=== PATIENT | female | born 1995 | race Caucasian/White ===

== ENCOUNTER 2016-12-03 16:36 | Outpatient (CLI) | payer SELFPAY | END 2016-12-03 16:38 | LOC: LABRHC 16:36 | PROVIDERS: ATTEND Physician Assistant | DX: Z01.419 Encounter for gynecological examination (general) (routine) without abnormal findings (principal) | CPT/HCPCS: 87491; 87591; 88148; G0143 ==

== ENCOUNTER 2017-06-10 18:46 | Emergency (ER) | payer OTHER ==
[2017-06-10] MEDS ORDERED: 0.9 % SODIUM CHLORIDE 1,000 ML IV SCH (19:30)
[2017-06-10] MEDS ORDERED: 0.9 % SODIUM CHLORIDE 1,000 ML IV ONE (19:42)
--- NOTE | 2017-06-10 20:33 | ED Physician Documentation ---
Headache - HISTORIAN Historian: patient - HPI Stated Complaint: N/V/CAZARES Chief Complaint: Headache Additional Information: Pt. is 9 weeks and has been vomiting and has a headache. 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[employer]) New Gradual Onset: Yes (has been having this problem off and on since beginning of ) Exposure To: none Severity: moderate Quality: similar to previous Associated Symptoms: nausea, vomiting Preceding Symptoms: denies: visual disturbance, scotoma, typical of prior aura(s ) Exacerbated By: denies: light, noise, movement, position Further Comments: no Last known Well Code/Unknown Code: Unknown - ROS NEURO/PSYCH: other (normal) EYES/ENT: denies: sore throat, difficulty swallowing, sinus pain, drainage CVS/RESP: none GI/: other (mild occasional cramps in pelvis) MS/SKIN/LYMPH: denies: muscle aches, back pain, rash, skin lesions, swollen glands all systems neg except as marked: No - PAST HX Medical History: no pertinent history Surgical History: appendectomy Immunizations: referred to PCP Allergies/Adverse Reactions: Allergies Allergy/AdvReac Type Severity Reaction Status Date / Time No Known Drug Allergies Allergy Verified 06/10/17 19:06 Home Medications: Ambulatory Orders Medication Instructions Recorded Pedi Mv No.79/Ferrous Fumarate 2 tab PO QDAY 06/10/17 [Flintstones with Iron Tab Chew] - SOCIAL HX Smoking History: non-smoker Alcohol Use: none Drug Use: none - Family HX Family History: none - VITAL SIGNS Vital Signs: Vital Signs Temp Pulse Resp BP Pulse Ox 98.3 F 93 H 16 105/67 100 06/10/17 18:55 06/10/17 18:55 06/10/17 18:55 06/10/17 18:55 06/10/17 18:55 - REVIEWED ASSESSMENTS Nursing Assessment Reviewed: Yes Vitals Reviewed: Yes Progress - Results/Orders Results/Orders: no testing ordered - Progress Progress: Pt. given 1 liter NS in ER with improvement of symptoms Critical Care Note - Critical Care Note Total Time (mins): 0 ED Results Lab/Radiology - Lab Results Lab Results: none ordered - Radiology Radiology Impressions: none ordered - Orders Orders: ED Orders Category Date Time Status Place IV Lock 1T Care 06/10/17 19:28 Active 0.9 % Sodium Chloride [Normal Saline] 1,000 ml Med 06/10/17 19:30 Ordered IV .Q1H Headache Physical Exam - EXAM General Appearance: alert, mild distress EENT: no facial swelling, eyes nml inspection, PERRL, nml ENT Neck: normal inspection, thyroid normal, supple Respiratory: no resp distress, chest non-tender, breath sounds normal. No: wheezes, rales, rhonchi CVS: reg. rate & rhythm, heart sounds nml Abdomen: non-tender, no organomegaly, nml bowel sounds, no distention Skin: color nml, no rash Extremitites: non-tender, normal range of motion, no evidence of injury, no edema - NEURO/PSYCH Higher Functions: alert, oriented x3, nml speech, mood/affect nml Cranial: nml as tested, no evidence of acute CVA Cerebellar: nml as tested Sensorimotor: motor nml, sensation nml Discharge Clincal Impression: Intrauterine , Dehydration Referrals: Saba Barber MD [Primary Care Provider] - 2 Days Comments: Pt. has Zofran at home to use prn n/v. She is encouraged to increase fluids and use Zofran and Tylenol prn and follow up with her ob/gyne Condition: Stable Disposition: 01 HOME, SELF-CARE Decision to Admit: NO Decision Time: 20:43
[2017-06-10 21:22] VITALS: BP 98/64
== END 2017-06-10 21:00 | disposition home or self-care (01) ==
LOC: ED 18:46
DX: E86.0 Dehydration (principal); Z33.1 Pregnant state, incidental
CPT/HCPCS: J7030 ×2; 96360; 99283; S1016

== ENCOUNTER 2018-09-05 16:25 | Outpatient (CLI) | payer OTHER | END 2018-09-05 16:30 | disposition home or self-care (01) | LOC: LABRHC 16:25 | PROVIDERS: ATTEND Family Medicine | DX: Z12.4 Encounter for screening for malignant neoplasm of cervix (principal) | CPT/HCPCS: 88148; G0143 ==

== ENCOUNTER 2018-12-19 01:18 | Emergency (ER) | payer SELFPAY ==
[2018-12-19] MEDS ORDERED: PHENAZOPYRIDINE HCL 200 MG TABLET PO ONE (01:46)
[2018-12-19] MEDS ORDERED: CIPROFLOXACIN HCL 500 MG TABLET PO ONE (01:46)
--- NOTE | 2018-12-19 01:51 | ED Physician Documentation ---
Female Urogenital Problems - HISTORIAN Historian: patient - HPI Stated Complaint: possible UTI Chief Complaint: Female Urogenital Problems Additional Information: Patient is a 23-year-old female who woke up around 23:00 with urinary urgency and burning. She states that she tried drinking some water but the pain got worse each time she tried to urinate. She denies any fever, chills, N/V/D. Onset: hours (23:00) Severity: mild Location of Pain: pelvic pain Further Comments: no - Vaginal Bleeding Sexual History: active Contraceptive: condoms, BCP's - Associated Symptoms Urinary Symptoms: blood in urine, frequent urination, discomfort w/ urination, burning w/ urination, urgency w/ urination Discharge: denies: vaginal discharge - ROS CONST: none GI/: denies: nausea, vomiting CVS/RESP: none EYES/ENT: none NEURO/PSYCH: none MS/SKIN/LYMPH: none - PAST HX Past History: none Other History: bladder infection Surgeries/Procedures: appendectomy Immunizations: UTD Allergies/Adverse Reactions: Allergies Allergy/AdvReac Type Severity Reaction Status Date / Time No Known Drug Allergies Allergy Verified 12/19/18 01:35 Home Medications: Ambulatory Orders Medication Instructions Recorded Pedi Mv No.79/Ferrous Fumarate 2 tab PO QDAY 06/10/17 [Flintstones with Iron Tab Chew] Ciprofloxacin HCl [Cipro] 500 mg PO BID #14 tablet 12/19/18 Phenazopyridine HCl [Pyridium] 100 mg PO TID #6 tablet 12/19/18 - SOCIAL HX Smoking History: non-smoker Alcohol Use: rarely Drug Use: none - FAMILY HX Family History: none - VITAL SIGNS Vital Signs: Vital Signs Temp Pulse Resp BP Pulse Ox 98.2 F 80 20 110/75 100 12/19/18 01:31 12/19/18 01:31 12/19/18 01:31 12/19/18 01:31 12/19/18 01:31 ED Results Lab/Radiology - Orders Orders: ED Orders Category Date Time Status URINALYSIS Routine Lab 12/19/18 01:42 Ordered Ciprofloxacin HCl [Cipro] Med 12/19/18 01:46 Once 500 mg PO NOW ONE Phenazopyridine HCl [Pyridium] Med 12/19/18 01:46 Once 200 mg PO NOW ONE Female Urogenital Problems - EXAM General Appearance: no acute distress, alert EENT: eye inspection normal, ENT inspection normal, LIAM Neck: nml inspection Respiratory: breath sounds nml CVS: reg rate & rhythm, heart sounds normal, equal pulses Abdomen: soft, non-tender Skin: color nml, no rash, warm,dry Extremities: normal range of motion Neuro: oriented X3, CN's nml as tested, motor nml, sensation nml, cognition normal Discharge Clincal Impression: Urinary tract infection Prescriptions: Ciprofloxacin HCl [Cipro] 500 mg PO BID #14 tablet Phenazopyridine HCl [Pyridium] 100 mg PO TID #6 tablet Referrals: Saba Barber MD [Primary Care Provider] - 2 Days Additional Instructions: Take Cipro 500 mg by mouth twice a day for 7 days Take pyridium 100 mg by mouth 3 times a day as needed for urinary pain Increase fluid intake (no caffeine) Follow up with PCP as needed Condition: Good Disposition: 01 HOME, SELF-CARE Decision to Admit: NO Decision Time: 01:58
[2018-12-19 02:19] VITALS: BP 110/70
[2018-12-19 07:32] LABS: APPEARANCE,URINE CLEAR (CLEAR); COLOR,URINE RED (YELLOW); OCCULT BLOOD,URINE 3+ (NEGATIVE); PH URINE 5.5 (5.0 - 8.0)
== END 2018-12-19 01:58 | disposition home or self-care (01) ==
LOC: ED 01:18
DX: N39.0 Urinary tract infection, site not specified (principal); B96.20 Unspecified Escherichia coli [E. coli] as the cause of diseases classified elsewhere; Z16.35 Resistance to multiple antimicrobial drugs
CPT/HCPCS: 81002; 87086; 99283